=== PATIENT | male | born 1955 | race Caucasian/White ===

== ENCOUNTER → 2018-05-19 09:50 | Outpatient (REF) | payer OTHER, SELFPAY | LOC: LAB 09:50 | PROVIDERS: Family Provider Family Medicine; PCP Family Medicine; Visit Provider Nurse Practitioner Family | DX: S81.802A Unspecified open wound, left lower leg, initial encounter (principal) | CPT/HCPCS: 87070; 87075; 87077; 87147; 87186; 87205 ==

== ENCOUNTER → 2018-07-03 07:07 | Outpatient (CLI) | payer OTHER, SELFPAY ==
[2018-07-03 08:09] LABS: Add Manual Diff / Slide Review NO; Basophils Percent Auto 1.1 % (0-2); Eosinophils Percent Auto 6.3 % (2-4); Hematocrit 46.8 % (41-53); Hemoglobin 15.8 g/dL (13.5-17.5); Lymphocytes Percent Auto 27.7 % (25-40); Mean Corpuscular HGB Conc 33.8 % (30-36); Mean Corpuscular Hemoglobin 29.6 PG (26-34); Mean Corpuscular Volume 87.5 fL (80-100); Monocytes Percent Auto 8.7 % (3-14); Neutrophils Absolute Auto 5100 /uL (3000-5900); Neutrophils Percent Auto 56.2 % (50-75); Platelet Count 236 X10^3/uL (150-400); Red Blood Cell Count 5.35 X10^6/uL (4.5-5.9); Red Cell Distribution Width 13.8 % (11.6-14.8)
[2018-07-03 08:19] LABS: Hemoglobin A1C% w Est Avg Glu 6.2 % (4.0-6.0)
[2018-07-03 08:32] LABS: Alanine Aminotransferase 36 IU/L (21-72); Albumin 4.4 g/dL (3.5-5.0); Albumin Globulin Ratio 1.4 (1.0-2.8); Alkaline Phosphatase 99 U/L (38-126); Aspartate Aminotransferase 25 IU/L (17-59); BUN Creatinine Ratio 22.7 (6-22); Bilirubin Total 0.5 mg/dL (0.2-1.3); Blood Urea Nitrogen 25 mg/dL (9-20); Calcium 9.3 mg/dL (8.4-10.2); Carbon Dioxide 30 mmol/L (22-32); Chloride 107 mmol/L (98-107); Cholesterol 192 mg/dL (140-199); Estimated Glomerular Filt Rate > 60.0 mL/min (>60); Globulin 3.1 g/dL (1.7-4.1); Glucose 99 mg/dL (80-110); HDL Cholesterol 35 mg/dL (40-60); HEMOLYSIS < 15 (0-50); LDL Cholesterol Calculated 105 mg/dL (<100); Potassium 4.7 mmol/L (3.4-5.1); Sodium 149 mmol/L (137-145); Total Protein 7.5 g/dL (6.3-8.2); Triglycerides 261 mg/dL (35-150)
[2018-07-03 09:19] LABS: LDL Cholesterol Direct 112 mg/dL (<100)
[2018-07-03 09:23] LABS: Hep C Virus Ab w/Reflex Quant NEGATIVE s/c (NEGATIVE)
[2018-07-03 09:29] LABS: Creatinine Urine Random 156.4 mg/dL
[2018-07-03 09:35] LABS: Microalbumi Creatinin Ratio Ur 15.3 ug/mg CR (<30); Microalbumin Urine Random 2.4 mg/dL (0-1.6)
== END ==
PROVIDERS: PCP Family Medicine; Visit Provider Family Medicine
DX: Z00.00 Encounter for general adult medical examination without abnormal findings (principal); R73.01 Impaired fasting glucose; L08.9 Local infection of the skin and subcutaneous tissue, unspecified; E78.5 Hyperlipidemia, unspecified; Z11.59 Encounter for screening for other viral diseases; I10 Essential (primary) hypertension
CPT/HCPCS: 36415; 80053; 80061; 82043; 82570; 83036; 83721; 85025; 86787; 86803

== ENCOUNTER → 2018-11-09 07:43 | Outpatient (CLI) | payer OTHER, SELFPAY ==
[2018-11-09 09:03] LABS: Hemoglobin A1C% w Est Avg Glu 6.8 % (4.0-6.0)
[2018-11-09 09:28] LABS: Alanine Aminotransferase 40 IU/L (21-72); Albumin 4.4 g/dL (3.5-5.0); Albumin Globulin Ratio 1.4 (1.0-2.8); Alkaline Phosphatase 96 U/L (38-126); Aspartate Aminotransferase 24 IU/L (17-59); BUN Creatinine Ratio 13.6 (6-22); Bilirubin Total 0.5 mg/dL (0.2-1.3); Blood Urea Nitrogen 15 mg/dL (9-20); Calcium 9.2 mg/dL (8.4-10.2); Carbon Dioxide 27 mmol/L (22-32); Chloride 106 mmol/L (98-107); Cholesterol 182 mg/dL (140-199); Estimated Glomerular Filt Rate > 60.0 mL/min (>60); Globulin 3.1 g/dL (1.7-4.1); Glucose 108 mg/dL (80-110); HDL Cholesterol 33 mg/dL (40-60); HEMOLYSIS < 15 (0-50); LDL Cholesterol Calculated 117 mg/dL (<100); Potassium 4.1 mmol/L (3.4-5.1); Sodium 142 mmol/L (137-145); Total Protein 7.5 g/dL (6.3-8.2); Triglycerides 161 mg/dL (35-150)
[2018-11-09 09:57] LABS: Thyroid Stimulating Hormone 3.79 uIU/mL (0.47-4.68)
== END ==
PROVIDERS: Family Provider Family Medicine; PCP Family Medicine; Visit Provider Family Medicine
DX: E78.5 Hyperlipidemia, unspecified (principal); I10 Essential (primary) hypertension; R73.01 Impaired fasting glucose
CPT/HCPCS: 36415; 80053; 80061; 83036; 84443

== ENCOUNTER → 2019-07-06 14:02 | Outpatient (CLI) | payer OTHER, SELFPAY ==
--- NOTE | 2019-07-06 14:08 | DI.RAD.S_ITS ---
PROCEDURE: XR HIP W PEL IF DONE LT MIN 4V INDICATIONS: BI KNEE PAIN, BI HIP PAIN TECHNIQUE: AP pelvis with lateral view(s) of the both hip(s). COMPARISON: None. FINDINGS: Bones: No fractures or dislocations. Pelvic ring appears intact. No suspicious bony lesions. There are bilateral hip arthroplasties with prosthesis in anatomic alignment. The mild degenerative changes in sacroiliac joints bilaterally. Soft tissues: The visualized bowel gas pattern is normal. No suspicious soft tissue calcifications. IMPRESSION: 1. No acute bony abnormalities. 2. Bilateral hip arthroplasty with prostheses in anatomic alignment. No evidence for hardware failure. 3. Mild SI joint degeneration bilaterally. Dictated by: Ilia Samayoa M.D. on 07/06/2019 at 17:38 Approved by: Ilia Samayoa M.D. on 07/06/2019 at 17:40
--- NOTE | 2019-07-06 14:08 | DI.RAD.S_ITS ---
PROCEDURE: XR KNEE LT 3V INDICATIONS: BI KNEE PAIN, BI HIP PAIN TECHNIQUE: 3 views of the knee were acquired. COMPARISON: [facility], CR, XR KNEE RT 3V, 07/06/2019, 14:07. FINDINGS: Bones: No fractures or dislocations. No suspicious bony lesions. Mild joint space narrowing in the medial femorotibial compartment. Soft tissues: No joint effusion. No suspicious soft tissue calcifications. IMPRESSION: No acute osseous abnormalities. Mild degenerative joint disease. Dictated by: Ilia Samayoa M.D. on 07/06/2019 at 17:40 Approved by: Ilia Samayoa M.D. on 07/06/2019 at 17:41
--- NOTE | 2019-07-06 14:08 | DI.RAD.S_ITS ---
PROCEDURE: XR KNEE RT 3V INDICATIONS: BI KNEE PAIN, BI HIP PAIN TECHNIQUE: 3 views of the knee were acquired. COMPARISON: [facility], CR, XR KNEE LT 3V, 07/06/2019, 14:07. FINDINGS: Bones: No fractures or dislocations. No suspicious bony lesions. Mild degenerative joint disease in patellofemoral joint. Soft tissues: No joint effusion. No suspicious soft tissue calcifications. IMPRESSION: Mild degenerative joint disease. Dictated by: Ilia Samayoa M.D. on 07/06/2019 at 17:41 Approved by: Ilia Samayoa M.D. on 07/06/2019 at 17:42
== END ==
PROVIDERS: PCP Family Medicine; Visit Provider Family Medicine
DX: M25.561 Pain in right knee (principal); M25.562 Pain in left knee; M17.0 Bilateral primary osteoarthritis of knee; M25.551 Pain in right hip; M25.552 Pain in left hip; M16.0 Bilateral primary osteoarthritis of hip; Z96.643 Presence of artificial hip joint, bilateral
CPT/HCPCS: 73522; 73562

== ENCOUNTER → 2020-02-04 16:32 | Outpatient (CLI) | payer OTHER, SELFPAY ==
--- NOTE | 2020-02-04 16:35 | DI.RAD.S_ITS ---
PROCEDURE: XR ELBOW RT MIN 3V INDICATIONS: RIGHT ELBOW PAIN TECHNIQUE: 3 views of the elbow were acquired. COMPARISON: None. FINDINGS: Bones: No fractures or dislocations. No suspicious bony lesions. Soft tissues: Minimal elbow joint effusion. No suspicious soft tissue calcifications. IMPRESSION: Minimal effusion. No visualized acute fracture or dislocation. However, if clinical concern and/or pain persist, short interval imaging followup in 7-10 days is recommended, as occult injury cannot be definitively excluded. Dictated by: Sparkle Cuevas M.D. on 02/04/2020 at 17:34 Approved by: Sparkle Cuevas M.D. on 02/04/2020 at 17:34
== END ==
PROVIDERS: PCP Family Medicine; Referring Provider Family Medicine; Visit Provider Family Medicine
DX: M25.521 Pain in right elbow (principal)
CPT/HCPCS: 73080

== ENCOUNTER → 2020-04-26 11:31 | Outpatient (CLI) | payer OTHER, SELFPAY ==
--- NOTE | 2020-04-26 | DI.RAD.S_ITS ---
PROCEDURE: XR SHOULDER RT MIN 2V INDICATIONS: RIGHT SHOULDER PAIN TECHNIQUE: 3 views of the shoulder were acquired. COMPARISON: None. FINDINGS: Bones: No fractures or dislocations. No suspicious bony lesions. Visualized ribs appear intact. Soft tissues: No suspicious soft tissue calcifications. IMPRESSION: No fracture. No osseous lesion. If symptoms and/or clinical suspicion for pathology persists, further assessment with repeat radiographs (7-10 days) or advanced imaging (e.g. CT, MRI or bone scan) may be helpful. Dictated by: Verito Leon MD, PhD on 04/26/2020 at 17:47 Approved by: Verito Leon MD, PhD on 04/26/2020 at 17:47
== END ==
PROVIDERS: PCP Family Medicine; Referring Provider Family Medicine; Visit Provider Family Medicine
DX: M25.511 Pain in right shoulder (principal)
CPT/HCPCS: 73030

== ENCOUNTER → 2020-05-09 16:46 | Outpatient (CLI) | payer OTHER, SELFPAY ==
--- NOTE | 2020-05-09 | DI.MRI.S_ITS ---
PROCEDURE: MR HEAD/BRAIN WO CON INDICATIONS: MEMORY COGNITIVE CHANGES TECHNIQUE: Non-contrast axial T1 spin echo, axial T2 fast spin echo, sagittal and axial FLAIR, coronal T2 fast spin echo, axial gradient echo, axial diffusion and ADC through the brain. COMPARISON: None. FINDINGS: Image quality: Excellent. CSF spaces: Ventricles appear symmetric in size and shape. Basal cisterns are patent. No extra-axial fluid collections. Brain: No intracranial bleeds or mass effects. There is cerebral volume loss for age. There are periventricular and deep white matter chronic small vessel ischemic changes. Brainstem appears normal. Diffusion-weighted images show no acute ischemic insults. No chronic ischemic insults. Normal intravascular flow voids are present. 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 When discovered in isolation, this is considered to be a developmental variant of no clinical consequence. Skull and face: Calvarial bone marrow is normal in signal. Orbits are normal. Sinuses: Sinuses and mastoids are clear. 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 Mild S-shaped nasal septal deviation is seen. IMPRESSION: Unremarkable intracranial study for age, without an imaging explanation found for the patient's presenting history. Note is made of age-appropriate brain parenchymal volume loss and chronic small vessel ischemic changes. No findings of acute or subacute infarction can be seen. Incidental note is made of: Cavum septum pellucidum Bilateral pennie bullosa Mild S-shaped nasal septal deviation Dictated by: Dave Wood M.D. on 05/09/2020 at 17:08 Approved by: Dave Wood M.D. on 05/09/2020 at 17:10
== END ==
PROVIDERS: PCP Family Medicine; Referring Provider Family Medicine; Visit Provider Family Medicine
DX: R41.89 Other symptoms and signs involving cognitive functions and awareness (principal); J34.2 Deviated nasal septum; J34.3 Hypertrophy of nasal turbinates
CPT/HCPCS: 70551

== ENCOUNTER → 2020-12-29 08:44 | Outpatient (CLI) | payer OTHER, SELFPAY ==
[2020-12-29] MEDS: COVID-19 VACC #1, MRNA(MOD) 100 MCG/0.5 ML VIAL IM (08:55)
== END ==
PROVIDERS: PCP Family Medicine; Visit Provider Internal Medicine
DX: Z23 Encounter for immunization (principal)
CPT/HCPCS: 0011A; 91301

== ENCOUNTER → 2021-01-17 10:43 | Outpatient (CLI) | payer OTHER, SELFPAY ==
--- NOTE | 2021-01-17 | DI.RAD.S_ITS ---
PROCEDURE: XR CERVICAL SPINE 2V OR 3V INDICATIONS: NECK PAIN TECHNIQUE: 3 view(s) of the cervical spine were acquired. COMPARISON: None. FINDINGS: Bones: No fractures or dislocations to the T1 level. The lateral masses of C1 appear intact on the odontoid view. No suspicious bony lesions. There is mild to moderate degenerative disc height reduction at at C3-4 and C4-5 and moderate such degenerative change at C5-6 and C6-7. Soft tissues: No prevertebral soft tissue swelling. IMPRESSION: No trauma found, no subluxation present. Progressively greater degenerative disc disease from the middle through the lower thirds of the cervical spine. [id number] degeneration is seen overall. Dictated by: Ricardo Pantoja M.D. on 01/17/2021 at 11:41 Approved by: Ricardo Pantoja M.D. on 01/17/2021 at 11:43
== END ==
PROVIDERS: PCP Family Medicine; Referring Provider Family Medicine; Visit Provider Family Medicine
DX: M50.11 Cervical disc disorder with radiculopathy, high cervical region (principal)
CPT/HCPCS: 72040

== ENCOUNTER → 2021-01-25 14:50 | Outpatient (CLI) | payer OTHER, SELFPAY ==
[2021-01-25] MEDS: COVID-19 VACC #2, MRNA(MOD) 100 MCG/0.5 ML VIAL IM (14:57)
== END ==
PROVIDERS: PCP Family Medicine; Visit Provider Internal Medicine
DX: Z23 Encounter for immunization (principal)
CPT/HCPCS: 0012A; 91301

== ENCOUNTER → 2021-04-12 08:22 | Outpatient (CLI) | payer OTHER, SELFPAY | PROVIDERS: PCP Family Medicine; Referring Provider Family Medicine; Visit Provider Family Medicine | DX: M54.12 Radiculopathy, cervical region (principal) | CPT/HCPCS: 95886; 95911 ==

== ENCOUNTER → 2022-06-10 08:23 | Outpatient (CLI) | payer MEDICARE, OTHER, SELFPAY ==
--- NOTE | 2022-06-10 | DI.RAD.S_ITS ---
PROCEDURE: XR HIP W PEL IF DONE LT 2V INDICATIONS: Bilateral primary osteoarthritis of hip TECHNIQUE: AP pelvis with lateral view(s) of the left hip(s). COMPARISON: [facility], [place], XR HIP W PEL IF DONE ANNA 3TO4V, 07/06/2019, 14:07. [facility], , [id number] W PEL IF PERFORMED, 05/26/2017, 15:44. FINDINGS: Bones: No fractures or dislocations. Pelvic ring appears intact. No suspicious bony lesions. Soft tissues: The visualized bowel gas pattern is normal. Heterotopic ossification is noted at the left greater trochanter which is increased in extent when compared with the study dated May 26, 2017. IMPRESSION: Stable left hip arthroplasty with slightly increased heterotopic ossification within the soft tissues of the greater trochanter when compared with the study from 2016. Dictated by: Carlee Parker M.D. on 06/10/2022 at 10:53 Approved by: Carlee Parker M.D. on 06/10/2022 at 10:54
== END ==
PROVIDERS: PCP Family Medicine; Referring Provider Family Medicine; Visit Provider Family Medicine
DX: M16.0 Bilateral primary osteoarthritis of hip (principal); Z96.642 Presence of left artificial hip joint
CPT/HCPCS: 73502